=== PATIENT | female | born 1975 | race Caucasian/White ===

== ENCOUNTER 2017-09-21 10:50 | Emergency (ER) | payer MEDICARE ==
--- NOTE | 2017-09-21 17:45 | RAD ---
PORTABLE CHEST: 09/21/17 An AP portable film at 1057 is compared with a 09/15/16 study. The heart size is stable. There is no c ongestive change or pleural effusion. The lungs are clear. The trachea is midline. IMPRESSION: No acute thoracic finding. POS: HOME
== END 2017-09-21 11:28 | disposition home or self-care (01) ==
LOC: BURERS 10:50
DX: J06.9 Acute upper respiratory infection, unspecified (principal); B20 Human immunodeficiency virus [HIV] disease; J45.909 Unspecified asthma, uncomplicated; F41.9 Anxiety disorder, unspecified; F31.9 Bipolar disorder, unspecified; F17.210 Nicotine dependence, cigarettes, uncomplicated; Z79.899 Other long term (current) drug therapy
CPT/HCPCS: 71045